=== PATIENT | male | born 1995 | race African-American/Black ===

== ENCOUNTER 2018-04-19 11:25 | Outpatient (CLI) | payer OTHER | END 2018-04-19 11:26 | disposition home or self-care (01) | LOC: SC 11:25 | PROVIDERS: ATTEND Internal Medicine Pulmonary Disease | DX: G47.30 Sleep apnea, unspecified (principal); G47.10 Hypersomnia, unspecified; G47.8 Other sleep disorders; R06.83 Snoring; G47.53 Recurrent isolated sleep paralysis | CPT/HCPCS: 99203; 99212 ==

== ENCOUNTER 2018-06-03 20:25 | Outpatient (CLI) | payer OTHER | END 2018-06-03 20:26 | disposition home or self-care (01) | LOC: SC 20:25 | PROVIDERS: ATTEND Internal Medicine Pulmonary Disease | DX: G47.30 Sleep apnea, unspecified (principal) | CPT/HCPCS: 95810 ==

== ENCOUNTER 2018-08-17 08:17 | Outpatient (CLI) | payer OTHER | END 2018-08-17 08:18 | disposition home or self-care (01) | LOC: SC 08:17 | PROVIDERS: ATTEND Nurse Practitioner Family | DX: R06.83 Snoring (principal); G47.10 Hypersomnia, unspecified; R53.83 Other fatigue | CPT/HCPCS: 99212; 99214 ==

== ENCOUNTER 2018-09-19 13:18 | Outpatient (CLI) | payer OTHER | END 2018-09-19 13:19 | disposition home or self-care (01) | LOC: SC 13:18 | PROVIDERS: ATTEND Internal Medicine Pulmonary Disease | DX: G47.10 Hypersomnia, unspecified (principal) | CPT/HCPCS: 99212; 99213 ==